=== PATIENT | female | born 1950 | race Caucasian/White ===

== ENCOUNTER 2018-01-30 00:50 | Outpatient (CLI) | payer OTHER, SELFPAY ==
--- NOTE | 2018-01-30 14:33 | DI.CTLCSR_ITS ---
SYMPTOMS/DIAGNOSIS: COPD, J44.9, FORMER SMOKER, Z87.891 CT SCAN OF THE CHEST: CT scan of the chest was performed according to the low dose cancer screening protocol. Comparison is 02/11/17. The thoracic aorta is of normal caliber. The heart size is within normal limits. No pericardial effusion is seen. Coronary artery calcifications are present. No mediastinal or hilar adenopathy is present. No pleural effusion or pneumothorax is identified. Central lobular and paraseptal emphysematous changes are present in the lungs. There are again seen multiple calcified pulmonary nodules. The largest is seen in the left lower lobe. No noncalcified pulmonary nodules are seen. No infiltrates are present. The tracheobronchial tree is unremarkable. There is diffuse decreased attenuation in the liver consistent with fatty infiltration. There has been no change in size of the 2.8 cm right adrenal nodule. There are degenerative changes seen in the spine. IMPRESSION: 1. No noncalcified pulmonary nodules. 2. Stable right adrenal nodule. Lung-RAD Category: Lung RADS Category 1- Negative.
== END 2018-01-30 01:10 ==
PROVIDERS: PCP Family Medicine; Visit Provider Internal Medicine
DX: J44.9 Chronic obstructive pulmonary disease, unspecified (principal); Z12.2 Encounter for screening for malignant neoplasm of respiratory organs; E27.8 Other specified disorders of adrenal gland; Z87.891 Personal history of nicotine dependence
CPT/HCPCS: G0297

== ENCOUNTER 2018-10-15 11:21 | Outpatient (REF) | payer SELFPAY ==
[2018-10-15 21:55] LABS: ALT 75 U/L (12-78); AST 77 U/L (15-37); Albumin 3.9 g/dL (3.4-5.0); Alkaline Phosphatase 81 U/L (46-116); Anion Gap 13.2 mmol/L (3-11); BUN 8 mg/dL (7-18); Bilirubin, Total 0.4 mg/dL (0.2-1.0); CO2 22.8 mmol/L (21.0-32.0); CREATININE 0.58 mg/dL (0.55-1.02); Calcium 9.5 mg/dL (8.5-10.1); Chloride 104 mmol/L (98-107); Glucose 119 mg/dL (70-100); Potassium 4.3 mmol/L (3.5-5.1); Sodium 140 mmol/L (136-145); Total Protein 7.3 g/dL (6.4-8.2)
== END 2018-10-15 11:41 ==
LOC: NCHCN 11:21
PROVIDERS: PCP Family Medicine; Visit Provider Family Medicine
DX: E11.9 Type 2 diabetes mellitus without complications (principal); E78.5 Hyperlipidemia, unspecified; I10 Essential (primary) hypertension
CPT/HCPCS: 80053

== ENCOUNTER 2019-12-31 14:19 | Outpatient (REF) | payer OTHER, SELFPAY ==
[2019-12-31 19:19] LABS: ALT 38 U/L (14-59); AST 35 U/L (15-37); Albumin 4.2 g/dL (3.4-5.0); Alkaline Phosphatase 76 U/L (46-116); Anion Gap 13.7 mmol/L (3-11); BUN 12 mg/dL (7-18); Bilirubin, Total 0.4 mg/dL (0.2-1.0); CO2 23.3 mmol/L (21.0-32.0); CREATININE 0.73 mg/dL (0.55-1.02); Calcium 9.8 mg/dL (8.5-10.1); Calculated LDL 69 mg/dL (<100); Chloride 103 mmol/L (98-107); Cholesterol 148 mg/dL (<200); Glucose 107 mg/dL (74-106); HDL Cholesterol 64 mg/dL (40-60); Potassium 4.4 mmol/L (3.5-5.1); Sodium 140 mmol/L (136-145); Total Protein 7.5 g/dL (6.4-8.2); Triglyceride 76 mg/dL (<150)
[2019-12-31 19:23] LABS: Hemoglobin A1C 7.1 % (<5.7)
== END 2019-12-31 14:39 ==
LOC: NCHCN 14:19
PROVIDERS: PCP Family Medicine; Visit Provider Family Medicine
DX: E11.9 Type 2 diabetes mellitus without complications (principal); I10 Essential (primary) hypertension; R78.5 Finding of other psychotropic drug in blood; K76.0 Fatty (change of) liver, not elsewhere classified
CPT/HCPCS: 80053; 80061; 83036

== ENCOUNTER 2020-09-06 01:05 | Outpatient (CLI) | payer OTHER, SELFPAY ==
--- NOTE | 2020-09-06 08:39 | DI.CTLCSR_ITS ---
Exam(s) CT CHEST LUNG CANCER SCREEN EXAM: CT CHEST LUNG CANCER SCREEN CLINICAL HISTORY: SCREENING FOR LUNG CA, FORMER SMOKER, Z87.891. TECHNIQUE: Imaging Protocol: Low Dose Technique CONTRAST MATERIAL: None COMPARISON: CT CT CHEST LUNG CANCER SCREEN from 01/30/2018 FINDINGS: CHEST: LUNGS: Multiple tiny calcified granulomas are again noted. A larger calcified granuloma in the left lower lobe is also again noted and unchanged.. There are no new ominous nodules in either lung field and no pleural effusions. Hyperinflation and COPD changes-emphysematous changes are again noted. N o new findings in the trachea and mainstem bronchi. No pleural effusions. MEDIASTINUM: There is no obvious hilar nor mediastinal adenopathy. CARDIAC: Heart size is normal. There is no pericardial effusion.Caliber of the thoracic aorta is wit hin normal limits. OTHER: The lowermost images of this low-dose chest study reveal multiple areas of hypodensity in the liver which were not previously evident and therefore suspicious for metastatic disease. Is difficul t to assess on this low-dose noninfused study. The largest of these is in the right hepatic lobe and measures approximately 2 x 1.9 cm. Previously described nodule in the right adrenal gland is unchan ged. Opposite-left adrenal gland remains unremarkable. OSSEOUS: No significant osseous lesions.. IMPRESSION: 1. Stable benign-appearing pulmonary findings. No new obvious intrathoracic adenopathy and no pleura l effusions. 2. Of concern is the appearance of multiple hypodensities now evident in the liver. Although these m ay imply the presence of metastatic disease, I note that the liver is less steatotic than on the prev ious study and there is a possibly that these may represent areas of persistent fatty parenchymal jayla nge. Nevertheless, this is not possible to assess accurately on this type of low-dose noninfused [place] study. Therefore further imaging with contrast infused CT scan of the abdomen-pelvis is recommend ed. 3. Lung RADS Cat 1S - Negative: No nodules and definitely benign nodules Needs workup of new significant liver findings as described above. Lung-RADS 1.0 CATEGORIES: Category 0 - Prior chest CT exam(s) being located for comparison. Category 1 - Annual screening in 12 months. No nodules or definitely benign nodules. Category 2 - Annual screening in 12 months. Benign appearance. Nodules with low likelihood of becomin g active cancer. Category 3 - 6-month follow-up. Probably benign. Short-term follow-up suggested. Nodules with low lik elihood of becoming active cancer. Category 4A - 3-month follow-up and CT/PET if >8 mm in size. Suspicious finding. Findings which requi re additional testing. Category 4B - Findings which require additional testing and tissue sampling. Modifier S- Potentially clinically significant findings (non lung cancer) RADIATION DOSE DELIVERED: 77.17mGy.cm Total DLP 1.84mGy CTDIvol DATA REPOSITORY: All CT scans at this facility are submitted to the National Radiology Data Registry (NRDR) Dose Index Registry (DIR) with the [employer] (ACR). RADIATION OPTIMIZATION: All CT scans at this facility use at least one of these dose optimization te chniques: automated exposure control; mA and/or kV adjustment per patient size (includes targeted exa ms where dose is matched to clinical indication); or iterative reconstruction.
== END 2020-09-06 01:25 ==
PROVIDERS: PCP Family Medicine; Visit Provider Family Medicine
DX: Z12.2 Encounter for screening for malignant neoplasm of respiratory organs (principal); K76.0 Fatty (change of) liver, not elsewhere classified; Z87.891 Personal history of nicotine dependence
CPT/HCPCS: 71271

== ENCOUNTER → 2020-09-15 04:23 | Outpatient (CLI) | payer OTHER, SELFPAY ==
--- NOTE | 2020-09-15 08:30 | DI.CT_ITS ---
Exam(s) CT ABDOMEN PELVIS W EXAM: CT ABDOMEN PELVIS W CLINICAL HISTORY: F/U ABNL CT OF CHEST,EVALUATE LIVER FINDINGS,R91.8. TECHNIQUE: Imaging Protocol: Axial computed tomography images with coronal and sagittal reformatted images were created and reviewed CONTRAST MATERIAL: Intravenous: Omnipaque 350 Contrast volume:100 Oral: yes / COMPARISON: CT CHEST WITHOUT CONTRAST from 12/05/2014 CT CHEST WITHOUT CONTRAST from 12/05/2014 MR MRI - LUMBAR SPINE WO CONTRAST from 12/19/2015 MR MRI - LUMBAR SPINE WO CONTRAST from 12/19/2015 CT CHEST - LUNG CANCER SCREENING from 02/11/2017 CT CHEST - LUNG CANCER SCREENING from 02/11/[address] CHEST LUNG CANCER SCREEN from 01/30/[address] CHEST LUNG CANCER SCREEN from 01/30/[address] CHEST LUNG CANCER SCREEN from 09/06/[address] CHEST LUNG CANCER SCREEN from 09/06/2020 FINDINGS: ABDOMEN: Lung Bases: Emphysematous changes. Small hiatal hernia. Liver: Normal density. Multiple circumscribed lesions are noted in the liver. There is no evidence of contrast enhancement. The findings are consistent with multiple cysts. Although they were not vi sible on prior exams, the overall liver attenuation was extremely low, close to water density, second krishna to fatty infiltration which would make it difficult to detect an underlying lesion. Gallbladder and biliary tract: No radiodense calculus or dilation. Pancreas: Normal density, no abnormal calcifications or inflammatory process. Spleen: Normal. Kidneys: Normal size, contour and axis. No radiodense stones or obstructive uropathy. No masses seen. Adrenal glands: No masses seen. Abdominal Aorta: Abdominal portion non-dilated. Atherosclerotic changes greatest of the inferior abd ominal aorta and iliac arteries. Soft tissues: Small fatty containing umbilical hernia. PELVIS: Bladder: Symmetric distention, no gross wall thickening. Cystocele. Bowel: No obstruction or bowel wall thickening. Moderate to increased quantity of stool. Peritoneal cavity: No ascites, collection or mesenteric inflammatory response. Bones: Degenerative disc changes and facet degenerative changes in the lower lumbar spine. Reproductive organs: Within normal limits. Lymph nodes: Unremarkable. Impression: Liver lesions are consistent with simple cysts. Underlying hepatic steatosis. Atherosclerotic orellana es of the aorta and iliac arteries. RADIATION DOSE DELIVERED: 1,730.22mGy.cm Total DLP DATA REPOSITORY: All CT scans at this facility are submitted to the National Radiology Data Registry (NRDR) Dose Index Registry (DIR) with the [employer] (ACR). RADIATION OPTIMIZATION: All CT scans at this facility use at least one of these dose optimization te chniques: automated exposure control; mA and/or kV adjustment per patient size (includes targeted exa ms where dose is matched to clinical indication); or iterative reconstruction.
[2020-09-15 09:32] LABS: Hemoglobin A1C 7.2 % (<5.7)
[2020-09-15 09:35] LABS: ALT 39 U/L (14-59); AST 30 U/L (15-37); Albumin 3.7 g/dL (3.4-5.0); Alkaline Phosphatase 65 U/L (46-116); Anion Gap 8.6 mmol/L (3-11); BUN 14 mg/dL (7-18); Bilirubin, Total 0.3 mg/dL (0.2-1.0); C-Reactive Protein 0.22 mg/dL (0.0-0.3); CO2 27.4 mmol/L (21.0-32.0); CREATININE 0.8 mg/dL (0.55-1.02); Calcium 9.2 mg/dL (8.5-10.1); Chloride 104 mmol/L (98-107); Glucose 120 mg/dL (74-106); Potassium 4.1 mmol/L (3.5-5.1); Sodium 140 mmol/L (136-145); Total Protein 7.6 g/dL (6.4-8.2)
[2020-09-15 09:39] LABS: ESR 32 mm/hr (0-30)
[2020-09-15] MEDS: Omnipaque 350 MG/ML 100 ML BTL IJ (10:04)
[2020-09-15] MEDS: Normal Saline - Diluent 50 ML VIAL IV (10:07)
[2020-09-15] MEDS: Breeza Beverage 473 ML BTL PO (10:12)
== END ==
PROVIDERS: PCP Family Medicine; Visit Provider Family Medicine
DX: K76.9 Liver disease, unspecified (principal); I70.0 Atherosclerosis of aorta; I70.8 Atherosclerosis of other arteries; R91.8 Other nonspecific abnormal finding of lung field
CPT/HCPCS: 36415; 80053; 85652; 74177; 83036; 86140; J3490

== ENCOUNTER 2021-01-02 14:44 | Outpatient (REF) | payer OTHER, SELFPAY ==
[2021-01-03 13:58] LABS: COVID-19 RT-PCR UVMMC Result Negative (Negative)
== END 2021-01-02 14:45 | disposition home or self-care (01) ==
LOC: NCHCN 14:44
PROVIDERS: PCP Family Medicine; Visit Provider Family Medicine
DX: R30.0 Dysuria (principal); Z20.822 Contact with and (suspected) exposure to COVID-19; R19.7 Diarrhea, unspecified
CPT/HCPCS: 87077; U0003; U0005; 87086; 87186

== ENCOUNTER 2021-08-22 16:35 | Outpatient (REF) | payer MEDICARE, SELFPAY ==
[2021-08-22 15:31] LABS: HCT 36.8 % (36.0-46.0); HGB 11.1 g/dL (11.2-15.7); MCH 26.4 pg (27.0-33.0); MCHC 30.2 % (32.0-36.0); MCV 88 fL (80-95); MPV 9.7 fL (8.0-11.0); Platelet Count 341 10^3/uL (130-400); RDW 15.2 % (11.7-14.6); RDW-SD 48.3 fL; WBC 7.13 10^3/uL (4.4-10.8)
[2021-08-22 16:17] LABS: Ferritin 15 ng/mL (8-252)
== END 2021-08-22 16:36 | disposition home or self-care (01) ==
LOC: NCHCN 16:35
PROVIDERS: PCP Family Medicine; Visit Provider Family Medicine
DX: D64.9 Anemia, unspecified (principal)
CPT/HCPCS: 85027; 82728

== ENCOUNTER 2021-10-01 09:16 | Emergency (ER) | payer MEDICARE, SELFPAY ==
[2021-10-01 09:20] VITALS: BP 172/69; PULSE 80; RESP 18; TEMP 36.6; O2SAT 96
--- NOTE | 2021-10-01 09:35 | ED.GENADUL_ITS ---
Discharge Plan Disposition Patient Disposition: HOME Condition: Stable Discharge Details Clinical Impression: Eye disorder Primary Care Provider: Britney Boes V ED Provider: Robyn England Home Meds and New Rx's Prescriptions: Continued Stiolto Respimat 2.5-2.5 mcg/actuation mist 2 puff inhalation DAILY valacyclovir 500 mg tablet See Rx Instructions PO DIRECTED Rx Instructions: PO as directed; Dulera 100-5 mcg/actuation HFA aerosol inhaler 2 puff inhalation BID Qty: 1 5RF losartan 50 MG tablet 1 tab PO HS celecoxib [Celebrex] 200 MG capsule 1 tab PO HS aspirin [Aspir-81] 81 MG tablet,delayed release (DR/EC) 1 tab PO HS simvastatin 40 MG tablet 1 tab PO HS omeprazole 20 MG capsule,delayed release(DR/EC) 1 tab PO BID albuterol sulfate 8.5 GM HFA aerosol inhaler 2 puff Inhalation .BID PRN cholecalciferol (vitamin D3) [Vitamin D3] 2,000 UNIT capsule 1 tab PO DAILY No Action ipratropium-albuterol 0.5 mg-3 mg(2.5 mg base)/3 mL Solution For Nebulization 3 ml INHALATION Q6H metformin 850 mg tablet 850 mg PO BID ferrous sulfate, dried 144 mg (45 mg iron) Tablet Extended Release 144 mg PO DAILY Discharge Instructions Additional Instructions: Please use the erythromycin ointment 3-4 times a day in your eyelid. Please do not try to forcibly pull your eyelids apart. You may also try to drop Refresh Tears into the inside corner of your eye several times per day. Please follow- up at your appointment with [facility] on 10/03/2021 as previously scheduled. Please return immediately to the emergency department if you develop any new or worsening symptoms, if your condition does not improve as expected, or if you become otherwise concerned. Referrals: Britney Bose MD [Primary Care Provider] - Discharge Data Discharge Date/Time-TO BE ENTERED AT DEPARTURE: 10/01/21 13:16 Medical Decision Making Amairani Escobedo is a 70-year-old woman with a history of COPD, zst-[id number] diabetes, hypertension, hyperlipidemia presenting to the emergency department eyelid glued shut. Patient reports that this morning at approximately 7 AM she was reaching for her refresh tears eyedrops, and grabbed her nail glue bottle instead. Patient reports that she dropped this nail glue into her left eye. She states that she realized her mistake immediately, but the glue had spread quickly and had glued her left eyelids together. Patient reports that she has some mild pain in the medial aspect of her left thigh when she tries to roll her eyes, otherwise has no eye pain, no other pain. Patient denies any other symptoms, states that she was previously well and in her usual state of health. Patient states that she googled superglue in the eye, and then put unsalted butter over her eyelid. She has also been holding a warm wet washcloth over the eyelid. No other interventions taken prior to arrival. Patient has brought nail glue bottle with her, ingredient reads cyanoacrylate. On exam patient is very well and nontoxic-appearing. The left eyelids are glued together, there is no erythema or edema of the orbit. Tearing from the left eye present. Concern for cyanoacrylate to be eye and to the eyelids. Exam/history at this time is not consistent with other eye injury, infection. Plan for erythromycin 3 times daily-4 times daily, outpatient follow-up with [facility] (patient has previously scheduled appointment with them for 10/03). I did discuss patient with Dr. Salomon at [facility], who agrees with erythromycin to the lids, can also use refresh tears at medial corner of eyelid, will see in follow- up, no further acute recommendations. I did discuss with patient that she should not attempt to forcibly open the eye and should let glue dissolve over time. I had a discussion with Patient regarding return to emergency department precautions, home care, and importance of outpatient follow-up. Pt verbalizes understanding of the plan and is amenable. Patient discharged to home with clear plan for outpatient follow-up. All questions were answered. Disposition decision was made weighing the risks and benefits of hospitalization versus outpatient treatment, the risk for further decompensation, and the patient's wishes. Medical Records Medical records reviewed: Yes I reviewed the patient's medical records. HPI General Mode of arrival: ambulatory . Date/Time Provider Initiated Documentation: 10/01/21 09:35 . Limitations to Documentation: no limitations . Information obtained by: patient, RN notes reviewed and old records reviewed . HPI Narrative: Amairani Escobedo is a 70-year-old woman with a history of COPD, avs-excydix-dzeelppfw diabetes, hypertension, hyperlipidemia presenting to the emergency department with left eyelids glued shut. Patient reports that this morning at approximately 7 AM she was reaching for her refresh tears eyedrops, and grabbed her nail glue bottle instead. Patient reports that she dropped this nail glue into her left eye. She states that she realized her mistake immediately, but the glue had spread quickly and had glued her left eyelids together. Patient reports that she has some mild pain in the medial aspect of her left eye when she tries to roll her eyes, otherwise has no eye pain, no other pain. Patient denies any other symptoms, states that she was previously well and in her usual state of health. Patient states that she googled superglue in the eye, and then put unsalted butter over her eyelid. She has also been holding a warm wet washcloth over the eyelid. No other interventions taken prior to arrival. Patient arrives with nail glue bottle, ingredient reads cyanoacrylate. Related Data Home Medications Medication Instructions Recorded Confirmed albuterol sulfate 90 mcg/actuation 2 puff inhalation .BID PRN 07/28/14 04/25/21 aerosol inhaler aspirin 81 mg tablet,delayed 1 tab PO HS 07/28/14 10/01/21 release (Aspir-) celecoxib 200 mg capsule (Celebrex) 1 tab PO HS 07/28/14 10/01/21 cholecalciferol (vitamin D3) 50 1 tab PO DAILY 07/28/14 10/01/21 mcg (2,000 unit) capsule (Vitamin D3) losartan 50 mg tablet 1 tab PO HS 07/28/14 10/01/21 omeprazole 20 mg capsule,delayed 1 tab PO BID 07/28/14 10/01/21 release simvastatin 40 mg tablet 1 tab PO HS 07/28/14 10/01/21 valacyclovir 500 mg tablet See Rx Instructions PO DIRECTED 10/19/20 04/25/21 mometasone-formoterol HFA 100 2 puff inhalation BID #1 inh 11/29/20 04/25/21 mcg-5 mcg/actuation aerosol inhaler (Dulera) tiotropium 2.5 mcg-olodaterol 2.5 2 puff inhalation DAILY 04/25/21 10/01/21 mcg/actuation mist for inhalation (Stiolto Respimat) ferrous sulfate, dried 144 mg (45 144 mg PO DAILY 10/01/21 10/01/21 mg iron) tablet,extended release ipratropium 0.5 mg-albuterol 3 mg 3 ml inhalation Q6H 10/01/21 10/01/21 (2.5 mg base)/3 mL nebulization soln metformin 850 mg tablet 850 mg PO BID 10/01/21 10/01/21 Previous Rx's Medication Instructions Recorded mometasone-formoterol HFA 100 2 puff inhalation BID #1 inh 11/29/20 mcg-5 mcg/actuation aerosol inhaler (Dulera) Allergies Allergy/AdvReac Type Severity Reaction Status Date / Time acetaminophen [From Vicodin] Allergy Verified 10/01/21 09:23 gabapentin Allergy Verified 10/01/21 09:23 hydrocodone [From Vicodin] Allergy Verified 10/01/21 09:23 naproxen [From Aleve] Allergy Verified 10/01/21 09:23 prednisone Allergy Verified 10/01/21 09:23 tramadol [From Ultram] Allergy Verified 10/01/21 09:23 adhesive AdvReac Intermediate Skin Rash Unverified 10/01/21 09:23 ibuprofen AdvReac Itching Unverified 10/01/21 09:23 General Stated Complaint: EyeProblem SAIRA: 3 Review of Systems Narrative: Constitutional: denies fevers Eyes: Reports eyelids stuck shut, eye pain as per HPI, no eye pain or visual complaints prior to incident ENT: denies ear pain, dental pain, sore throat Cardiovascular: denies chest pain Respiratory: denies SOB, cough GI: denies abdominal pain, vomiting, diarrhea : denies flank pain MSK: denies back pain, neck pain, arthralgias, myalgias Skin: denies rash Neuro: denies headaches PFSH All Active Problems Eye disorder (Acute) Personal history of nicotine dependence (Acute) COPD (chronic obstructive pulmonary disease) (Chronic) Nocturia (Acute) Disturbance of consciousness (Acute) Obstructive sleep apnea syndrome in adult (Acute) Hypersomnia (Acute) Primary insomnia (Acute) Obesity (Chronic) Family History Father Cancer lung cancer. Sister Cancer lung cancer history. Brother Cancer history of prostate cancer. Emphysema, unspecified Mother Cancer uterine cancer. Social History Smoking/Tobacco Use Status: Former Tobacco Use Quit Date: 03/24/09 Smoking risk assessment performed?: Yes Alcohol Intake: current Alcohol Intake frequency: holidays/special occasions only Drug use: Never Substance use type: does not use Do you feel safe at home: Yes Do you feel safe in your relationship?: Yes Exam Narrative Exam Narrative: Constitutional: well and srf-nkdew-hnshecfoe, pleasant, conversing normally HENT: head atraumatic/normocephalic/normal inspection, mucous membranes moist Eyes: conjunctiva normal, sclera normal, pupils 3mm right eye, last eyelid glued shut, no edema or erythema of the orbit, small amount of tearing from the eye (clear colorless discharge) Neck: no stridor, normal ROM, trachea midline Resp: normal work of breathing, speaking in full sentences Cardio: normal rate, normal rhythm Skin: warm, dry, normal color, no rash Neuro: alert, not altered, grossly non-focal, normal tone Ext: Moving all extremities equally Psych: normal mood, normal affect, normal behavior Course Vital Signs Vital signs: Vital Signs Temperature 36.6 C 10/01/21 09:20 Pulse 80 10/01/21 09:20 Respiratory Rate 18 10/01/21 09:20 Blood Pressure 172/69 H 10/01/21 09:20 Pulse Oximetry 96 10/01/21 09:20 Temperature 36.6 C 10/01/21 09:20 Temperature Source Temporal Artery Scan 10/01/21 09:20 Pulse 80 10/01/21 09:20 Respiratory Rate 18 10/01/21 09:20 Respiratory Effort Non-Labored 10/01/21 09:25 Blood Pressure 172/69 H 10/01/21 09:20 Blood Pressure Position Sitting 10/01/21 09:20 Pulse Oximetry 96 10/01/21 09:20 Oxygen Delivery Method Room Air 10/01/21 09:20 Oxygen Flow Rate 0 10/01/21 09:20
[2021-10-01] MEDS: Erythromycin Ophth Oint 3.5 GM TUBE OS (09:54)
== END 2021-10-01 13:16 | disposition home or self-care (01) ==
LOC: ER 09:48
PROVIDERS: Emergency Provider Student in an Organized Health Care Education/Training Program; PCP Family Medicine
DX: H57.12 Ocular pain, left eye (principal); I10 Essential (primary) hypertension; E11.9 Type 2 diabetes mellitus without complications; J44.9 Chronic obstructive pulmonary disease, unspecified; Z87.891 Personal history of nicotine dependence; Z79.84 Long term (current) use of oral hypoglycemic drugs
CPT/HCPCS: 99283; 99284

== ENCOUNTER → 2021-12-06 02:19 | Outpatient (CLI) | payer MEDICARE, SELFPAY ==
--- NOTE | 2021-12-06 07:00 | DI.CTLCSR_ITS ---
Exam(s) CT CHEST LUNG CANCER SCREEN EXAM: CT CHEST LUNG CANCER SCREEN CLINICAL HISTORY: Screening for lung cancer,former smoker, z87.891 TECHNIQUE: Imaging Protocol: Axial computed tomography images with coronal and sagittal reformatted images were created and reviewed COMPARISON: CT CT CHEST LUNG CANCER SCREEN from 09/06/[address] ABDOMEN PELVIS W from 09/15/2020 FINDINGS: Tracheobronchial tree: Patent where visualized. Pulmonary parenchyma: No consolidation or dominant measurable mass. Moderate centrilobular and parase ptal emphysematous changes are present. There again seen multiple calcified granuloma. Lung Nodules: No noncalcified pulmonary nodules are present. Mediastinum and Julianne: No dominant adenopathy or fluid collection. The esophagus is unremarkable. Thyroid gland: Unremarkable. Lymph nodes: Unremarkable. Pleura: No effusion or pneumothorax. Heart: The heart is not dilated. Mild coronary artery calcification. No pericardial effusion. Aorta: Thoracic aorta non-dilated.There is atherosclerosis present. Upper abdomen: There is diffuse decreased attenuation of the liver. There again seen multiple hypod ense lesions in the liver consistent with cysts. These are unchanged. Soft Tissues: Unremarkable. Bones: Within normal limits. IMPRESSION: No noncalcified pulmonary nodules. Lung RADS Cat 1 - Negative: No nodules and definitely benign nodules Lung-RADS 1.0 CATEGORIES: Category 0 - Prior chest CT exam(s) being located for comparison. Category 1 - Annual screening in 12 months. No nodules or definitely benign nodules. Category 2 - Annual screening in 12 months. Benign appearance. Nodules with low likelihood of becomin g active cancer. Category 3 - 6-month follow-up. Probably benign. Short-term follow-up suggested. Nodules with low lik elihood of becoming active cancer. Category 4A - 3-month follow-up and CT/PET if >8 mm in size. Suspicious finding. Findings which requi re additional testing. Category 4B - Findings which require additional testing and tissue sampling. Suspicious finding. Category 4X - Category 3 or 4 nodules with additional features or imaging findings that increases the suspicion of malignancy. Modifier S- Potentially clinically significant finding. (Non lung cancer) RADIATION DOSE DELIVERED: 73.2mGy.cm Total DLP 1.84mGy CTDIvol 73.2mGy.cm Total DLP 1.84mGy CTDIvol DATA REPOSITORY: All CT scans at this facility are submitted to the National Radiology Data Registry (NRDR) Dose Index Registry (DIR) with the [employer] (ACR). RADIATION OPTIMIZATION: All CT scans at this facility use at least one of these dose optimization te chniques: automated exposure control; mA and/or kV adjustment per patient size (includes targeted exa ms where dose is matched to clinical indication); or iterative reconstruction.
== END ==
PROVIDERS: PCP Family Medicine; Visit Provider Student in an Organized Health Care Education/Training Program
DX: Z12.2 Encounter for screening for malignant neoplasm of respiratory organs (principal); Z87.891 Personal history of nicotine dependence
CPT/HCPCS: 71271

== ENCOUNTER 2022-01-01 08:52 | Outpatient (REF) | payer MEDICARE, SELFPAY ==
[2022-01-01 16:03] LABS: HCT 35.2 % (36.0-46.0); HGB 11.2 g/dL (11.2-15.7)
[2022-01-01 16:07] LABS: ALT 36 U/L (14-59); AST 41 U/L (15-37); Albumin 3.7 g/dL (3.4-5.0); Alkaline Phosphatase 66 U/L (46-116); Anion Gap 12.6 mmol/L (3-11); BUN 9 mg/dL (7-18); Bilirubin, Total 0.5 mg/dL (0.2-1.0); CO2 22.4 mmol/L (21.0-32.0); CREATININE 0.7 mg/dL (0.55-1.02); Calcium 9.4 mg/dL (8.5-10.1); Chloride 104 mmol/L (98-107); Estimated GFR 93.56 (mL/min/1.73m2); Glucose 145 mg/dL (74-106); Potassium 3.9 mmol/L (3.5-5.1); Sodium 139 mmol/L (136-145); Total Protein 7.6 g/dL (6.4-8.2)
[2022-01-01 17:43] LABS: Hemoglobin A1C 7.7 % (<5.7)
[2022-01-03 11:07] LABS: COVID-19 RT-PCR UVMMC Result Positive (Negative)
== END 2022-01-01 08:53 | disposition home or self-care (01) ==
LOC: NCHCN 08:52
PROVIDERS: PCP Family Medicine; Visit Provider Family Medicine
DX: I10 Essential (primary) hypertension (principal); D64.9 Anemia, unspecified; E11.9 Type 2 diabetes mellitus without complications; R79.89 Other specified abnormal findings of blood chemistry; R05.8 Other specified cough; J44.9 Chronic obstructive pulmonary disease, unspecified; Z20.822 Contact with and (suspected) exposure to COVID-19; R30.0 Dysuria; J06.9 Acute upper respiratory infection, unspecified
CPT/HCPCS: 80053; U0003; 83036; 85014; 85018; 87086

== ENCOUNTER 2022-09-10 13:27 | Outpatient (REF) | payer MEDICARE, SELFPAY ==
[2022-09-10 15:10] LABS: HCT 38.8 % (36.0-46.0); HGB 12.6 g/dL (11.2-15.7); MCH 28.8 pg (27.0-33.0); MCHC 32.5 % (32.0-36.0); MCV 89 fL (80-95); MPV 10.1 fL (8.0-11.0); Platelet Count 270 10^3/uL (130-400); RBC 4.38 10^6/uL (3.93-5.22); RDW 14.2 % (11.7-14.6); RDW-SD 45.7 fL; WBC 6.69 10^3/uL (4.4-10.8)
[2022-09-10 15:24] LABS: Iron 150 ug/dL (50-170)
[2022-09-10 15:30] LABS: AST 35 U/L (15-37); Calculated LDL 64 mg/dL (<100); Cholesterol 146 mg/dL (<200); HDL Cholesterol 63 mg/dL (40-60); Triglyceride 99 mg/dL (<150)
[2022-09-10 15:48] LABS: Creatine Kinase 190 U/L (26-192)
== END 2022-09-10 13:28 | disposition home or self-care (01) ==
LOC: NCHCN 13:27
PROVIDERS: PCP Family Medicine; Visit Provider Family Medicine
DX: Z00.00 Encounter for general adult medical examination without abnormal findings (principal); D64.9 Anemia, unspecified; R79.89 Other specified abnormal findings of blood chemistry; K76.0 Fatty (change of) liver, not elsewhere classified; E78.5 Hyperlipidemia, unspecified
CPT/HCPCS: 80061; 82550; 85027; 83540; 84450

== ENCOUNTER → 2022-12-26 03:08 | Outpatient (CLI) | payer MEDICARE, SELFPAY ==
--- NOTE | 2022-12-26 | DI.CTLCSR_ITS ---
Exam(s) CT CHEST LUNG CANCER SCREEN EXAM: CT CHEST LUNG CANCER SCREEN CLINICAL HISTORY: HX SMOKER Z87.891 HX TOBACCO USE SCREENING LUNG CANCER. TECHNIQUE: Imaging Protocol: Low Dose Technique CONTRAST MATERIAL: None COMPARISON: CT CHEST WITHOUT CONTRAST from 12/05/[address] CHEST LUNG CANCER SCREEN from 01/30/[address] ABDOMEN PELVIS W from 09/15/[address] CHEST LUNG CANCER SCREEN from 12/06/2021 FINDINGS: CHEST: LUNGS: Multiple tiny calcified granulomas are again noted in the lung gibbons. There is also slightly larger benign calcified granuloma in the superior segment of the left lower lobe again noted, unchan ged.. COPD changes again noted. Largest bulla is again noted to be in the subcarinal medial basal segment of the right lower lobe. There is a small area of infiltrate in the right upper lobe which is associated with a spiculated nod ular density measuring 7 by 6 mm, more evident than on prior study of 12/06/2021. Suspicious. There are no other suspicious focal lung findings and there are no pleural effusions. MEDIASTINUM: There is no obvious hilar nor mediastinal adenopathy. CARDIAC: Heart size is normal. There is no pericardial effusion.Caliber of the thoracic aorta is wit hin normal limits. OTHER: Right adrenal gland mass again noted and appears unchanged from 2018. Left adrenal gland emiliano ins unremarkable. There also hypodense lesions in the right hepatic lobe again noted which are uncha nged from 12/06/2021. These were shown to be benign cysts on contrast infused abdominal CT scan of 0 09/15/2020. OSSEOUS: No significant osseous lesions.. IMPRESSION: 1. There is a concerning nodular infiltrate in the right upper lobe evident. This requires appropria te follow-up to rule out malignancy. 2. Mass again noted in the right adrenal gland measuring 2.7 x 2.8 cm but unchanged from prior CT negro dies. Left adrenal gland unremarkable. 3. Lung RADS Cat 4A - Suspicious: Findings for which additional diagnostic testing and/or tissue samp ling recommended Lung-RADS 1.0 CATEGORIES: Category 0 - Prior chest CT exam(s) being located for comparison. Category 1 - Annual screening in 12 months. No nodules or definitely benign nodules. Category 2 - Annual screening in 12 months. Benign appearance. Nodules with low likelihood of becomin g active cancer. Category 3 - 6-month follow-up. Probably benign. Short-term follow-up suggested. Nodules with low lik elihood of becoming active cancer. Category 4A - 3-month follow-up and CT/PET if >8 mm in size. Suspicious finding. Findings which requi re additional testing. Category 4B - Findings which require additional testing and tissue sampling. Category 4X - Category 3 or 4 nodules with additional features or imaging findings that increases the suspicion of malignancy. Modifier S- Potentially clinically significant findings (non lung cancer) RADIATION DOSE DELIVERED: 73.3mGy.cm Total DLP DATA REPOSITORY: All CT scans at this facility are submitted to the National Radiology Data Registry (NRDR) Dose Index Registry (DIR) with the [employer] (ACR). RADIATION OPTIMIZATION: All CT scans at this facility use at least one of these dose optimization te chniques: automated exposure control; mA and/or kV adjustment per patient size (includes targeted exa ms where dose is matched to clinical indication); or iterative reconstruction.
== END ==
PROVIDERS: PCP Family Medicine; Visit Provider Family Medicine
DX: Z87.891 Personal history of nicotine dependence (principal); Z12.2 Encounter for screening for malignant neoplasm of respiratory organs; R91.8 Other nonspecific abnormal finding of lung field
CPT/HCPCS: 71271

== ENCOUNTER 2023-01-22 09:36 | Outpatient (REF) | payer MEDICARE, SELFPAY ==
[2023-01-22 16:07] LABS: Anion Gap 11.1 mmol/L (3-11); BUN 9 mg/dL (7-18); CO2 23.9 mmol/L (21.0-32.0); CREATININE 0.8 mg/dL (0.55-1.02); Calcium 9.7 mg/dL (8.5-10.1); Chloride 102 mmol/L (98-107); Estimated GFR 79.22 (mL/min/1.73m2); Glucose 165 mg/dL (74-106); Sodium 137 mmol/L (136-145)
== END 2023-01-22 09:37 | disposition home or self-care (01) ==
LOC: NCHCN 09:36
PROVIDERS: PCP Family Medicine; Visit Provider Family Medicine
DX: Z00.00 Encounter for general adult medical examination without abnormal findings (principal)
CPT/HCPCS: 80048

== ENCOUNTER 2024-01-15 11:54 | Outpatient (REF) | payer MEDICARE, SELFPAY ==
[2024-01-15 16:53] LABS: Abs Immature Grans 0.04 10^3/uL (0.0-0.06); Absolute Basophil Count 0.06 10^3/uL (0.0-0.2); Absolute Eosinophil Count 0.53 10^3/uL (0.0-0.7); Absolute Lymphocyte Count 1.93 10^3/uL (1.2-3.4); Absolute Monocyte Count 0.47 10^3/uL (0.1-0.8); Basophils % 0.7 %; Eosinophils % 6.5 %; HCT 38.2 % (36.0-46.0); Immature Grans % 0.5 %; Lymphocytes % 23.7 %; MCH 28.4 pg (27.0-33.0); MCHC 31.4 % (32.0-36.0); MCV 90 fL (80-95); MPV 9.8 fL (8.0-11.0); Monocytes % 5.8 %; Neutrophils % 62.8 %; Platelet Count 410 10^3/uL (130-400); RBC 4.23 10^6/uL (3.93-5.22); RDW 12.9 % (11.7-14.6); RDW-SD 42.4 fL; WBC 8.13 10^3/uL (4.4-10.8)
[2024-01-15 17:31] LABS: ALT 11 U/L (14-59); AST 22 U/L (15-37); Alkaline Phosphatase 60 U/L (46-116); Anion Gap 12.6 mmol/L (3-11); BUN 6 mg/dL (7-18); Bilirubin, Total 0.34 mg/dL (0.2-1.0); CO2 25.4 mmol/L (21.0-32.0); CREATININE 0.6 mg/dL (0.55-1.02); Calcium 9.5 mg/dL (8.5-10.1); Chloride 105 mmol/L (98-107); Glucose 79 mg/dL (74-106); Potassium 3.9 mmol/L (3.5-5.1); Sodium 143 mmol/L (136-145); TSH (W/Ref FT4) 1.96 uIU/mL (0.36-3.74); Total Protein 7.1 g/dL (6.4-8.2)
[2024-01-15 18:21] LABS: Hemoglobin A1C 6.5 % (<5.7)
[2024-01-16 18:35] LABS: C-Reactive Protein 2.19 mg/dL (<or=0.5)
== END 2024-01-15 11:55 | disposition home or self-care (01) ==
LOC: NCHCN 11:54
PROVIDERS: PCP Family Medicine; Visit Provider Family Medicine
DX: R53.81 Other malaise (principal)
CPT/HCPCS: 80053; 83036; 84443; 85025; 86140; 87086

== ENCOUNTER 2024-02-03 02:57 | Outpatient (CLI) | payer MEDICARE, SELFPAY ==
--- NOTE | 2024-02-03 | DI.CT_ITS ---
Exam(s) CT CHEST/ABD/PEL W EXAM: CT CHEST/ABD/PEL W CLINICAL HISTORY: Abnl Wt loss, R63.4. TECHNIQUE: Imaging Protocol: Axial computed tomography images with coronal and sagittal reformatted images were created and reviewed. Computer aided detection (CAD) was utilized. CONTRAST MATERIAL: Intravenous: Omnipaque 350 Contrast volume:100 ml Oral: yes / COMPARISON: CT CT CHEST LUNG CANCER SCREEN from 12/26/2022 FINDINGS: CHEST: Tracheobronchial tree: Patent. Pulmonary parenchyma: Underlying emphysematous changes. Area consolidation and volume loss noted in t he right upper lobe. Mild bronchiectasis in this area. Previously noted spiculated nodule is no longe r visible which could be obscured by the area of consolidation/atelectasis. Additional diffuse infilt rate is noted in the right lower lobe. Mild ground-glass opacities are present in the right middle lo be. Pleura: No effusion or pneumothorax. Mediastinum: Within normal limits. Aorta: Thoracic portion non-dilated. Pulmonary arteries: No visible emboli. Heart: Normal size. No pericardial effusion. Bones: Unremarkable for age. No lytic or blastic lesions.No compression fractures. Soft tissues: Unremarkable. ABDOMEN and PELVIS: Liver: Normal density. Stable liver cysts. No suspicious mass. Gallbladder and biliary tract: No evidence of stones or wall thickening. No biliary dilatation. Pancreas: Normal density, no abnormal calcifications or inflammatory process. Spleen: Normal. Kidneys: Normal size, contour and axis. No radiodense stones. No obstructive uropathy. No suspicious masses seen. Adrenal glands: No stable right adrenal mass. Aorta: Abdominal portion non-dilated. Atherosclerotic changes. Lymph nodes: Within normal limits. Soft tissues: Unremarkable. Bladder: Unremarkable. Bowel: No obstruction or bowel wall thickening. Appendix normal. Peritoneal cavity: No ascites. No focal collection. No mesenteric inflammatory response. No free ai r. Bones: Degenerative changes in the spine. Reproductive organs: Status post hysterectomy. IMPRESSION: Area of consolidation and or atelectasis in the right upper lobe. Patchy infiltrates in the right low er lobe and middle lobe. Previously noted nodule in the right upper lobe no longer visible. This coul d be obscured by the area of atelectasis/consolidation. Malignancy not excluded. Close follow-up missy mmended. No acute abnormality in the abdomen or pelvis. RADIATION DOSE DELIVERED: 349.81mGy.cm Total DLP DATA REPOSITORY: All CT scans at this facility are submitted to the National Radiology Data Registry (NRDR) Dose Index Registry (DIR) with the [employer] ([employer]). RADIATION OPTIMIZATION: All CT scans at this facility use at least one of these dose optimization te chniques: automated exposure control; mA and/or kV adjustment per patient size (includes targeted exa ms where dose is matched to clinical indication); or iterative reconstruction.
[2024-02-03] MEDS: Barium Sulfate 2% W/V-Creamy Vanilla Smoothie 450 ML BTL PO ×2 (11:22→11:24)
[2024-02-03] MEDS: Omnipaque 350 MG/ML 100 ML BTL IJ (13:22)
[2024-02-03] MEDS: Normal Saline - Diluent 50 ML VIAL IJ (13:22)
== END 2024-02-03 03:17 ==
LOC: DI 02:57
PROVIDERS: PCP Family Medicine; Visit Provider Family Medicine
DX: J98.11 Atelectasis (principal)
CPT/HCPCS: 74177; 71260; J3490

== ENCOUNTER 2024-02-04 08:14 | Outpatient (REF) | payer MEDICARE, SELFPAY ==
--- NOTE | 2024-02-04 07:40 | SKI_PTH ---
PATIENT: Amairani Escobedo LOC: [facility] U#:[id number] AGE/SX: 73/F ROOM: RE02/04/[address]: Max Torres MD : 1950 BED: DIS: 02/04/2024 SPEC #: [id number] RECD: 02/04/24 12:40 STATUS: ASTON REQ #: [id number] JAYA: 02/04/24 07:[address]: Max Torres DEPT: Surgical Specimen RECD BY: Marlena Cardona ENTERED: 02/04/24 12:40 SP TYPE: SKI OTHR DR: rBitney Bose V Tissues: 1 - SKIN BIOPSY(SHAVE/PUNCH) Procedures: SKIN LEVEL 4 Comments: [id number]
== END 2024-02-04 08:15 | disposition home or self-care (01) ==
LOC: LBN 08:14
PROVIDERS: PCP Family Medicine; Visit Provider Otolaryngology
DX: L98.9 Disorder of the skin and subcutaneous tissue, unspecified (principal); L82.1 Other seborrheic keratosis
CPT/HCPCS: 88305

== ENCOUNTER 2024-04-29 00:33 | Outpatient (CLI) | payer MEDICARE, SELFPAY ==
--- NOTE | 2024-04-29 08:19 | DI.CT_ITS ---
Exam(s) CT CHEST WO EXAM: CT CHEST WO CLINICAL HISTORY: Primary malignant neoplasm of RUL of lung, C34.11; completed empiric SBRT TECHNIQUE: Imaging Protocol: Axial computed tomography images with coronal and sagittal reformatted images were created and reviewed. Computer aided detection (CAD) was utilized. CONTRAST MATERIAL: Noncontrast. COMPARISON: CT CT CHEST/ABD/PEL W from 02/03/2024 FINDINGS: Pulmonary parenchyma: There is right upper lobe scarring and volume loss. There is some collapse o f the inferior right upper lobe. The appearance is improved from prior. There is no evidence of dis crete mass. The previously noted infiltrates have cleared. No new masses or pulmonary nodules. Mod erate underlying emphysematous changes. Tracheobronchial tree: No bronchiectasis or mucous plugging. Mediastinum and Julianne: No dominant adenopathy or fluid collection. Pleura: No effusion. No pneumothorax. Heart: The heart is not dilated. No coronary artery calcifications are seen. Aorta: Thoracic aorta non-dilated. Mild atherosclerotic changes. Pulmonary arteries: No gross evidence of emboli. Upper abdomen: No acute findings. Stable right adrenal mass. Liver cysts. Bones: Degenerative changes in the spine. No lytic or blastic lesions. Soft tissues: Unremarkable. IMPRESSION: Right upper lobe scarring and volume loss. Significant interval improvement from prior exam. The pr eviously noted infiltrates have cleared. No new masses or pulmonary nodules. RADIATION DOSE DELIVERED: 202.64mGy.cm Total DLP DATA REPOSITORY: All CT scans at this facility are submitted to the National Radiology Data Registry (NRDR) Dose Index Registry (DIR) with the [employer] ([employer]). RADIATION OPTIMIZATION: All CT scans at this facility use at least one of these dose optimization te chniques: automated exposure control; mA and/or kV adjustment per patient size (includes targeted exa ms where dose is matched to clinical indication); or iterative reconstruction.
== END 2024-04-29 00:53 ==
LOC: DI 00:34
PROVIDERS: PCP Family Medicine; Visit Provider Physician Assistant
DX: C34.11 Malignant neoplasm of upper lobe, right bronchus or lung (principal)
CPT/HCPCS: 71250

== ENCOUNTER 2024-10-27 01:41 | Outpatient (CLI) | payer MEDICARE, SELFPAY ==
--- NOTE | 2024-10-27 | DI.CT_ITS ---
Exam(s) CT CHEST WO EXAM: CT CHEST WO CLINICAL HISTORY: RT UPPER LOBE LUNG CANCER C34.11 COMPLETED SBRT 06/27/23 FOR RUL NODULE. TECHNIQUE: Imaging protocol: Axial computed tomography images were obtained and coronal and sagittal reformatted images were created and reviewed. Lung Computer Aided Detection (CAD) was utilized. COMPARISON: CT CT CHEST LUNG CANCER SCREEN from 12/26/[address] CHEST/ABD/PEL W from 02/03/[address] CHEST WO from 04/29/2024 FINDINGS: Tracheobronchial tree: Patent where visualized. No bronchiectasis is present. Pulmonary parenchyma: Emphysematous changes are seen within the lungs. Calcified granuloma are present. There is continued improvement of the opacity in the right upper lobe. No new infiltrates are present. Mediastinum and Julianne: No dominant adenopathy or fluid collection. The esophagus is unremarkable. Thyroid gland: Unremarkable. Pleura: No effusion or pneumothorax. Heart: The heart is not dilated. Mild single-vessel coronary artery calcification is present. No pericardial effusion. Aorta: Thoracic aorta non-dilated. Atherosclerotic calcification is present. Upper abdomen: There are multiple hepatic cysts again seen. There is a stable right adrenal nodule. Lymph nodes: Within normal limits. Soft tissues: Unremarkable. Bones:Within normal limits for the patient's age. IMPRESSION: 1. Continued improvement of the right upper lobe scarring compared to the prior examination. 2. No acute pulmonary process, new masses or infiltrates. 3. Stable hepatic cysts and right adrenal nodule. RADIATION DOSE DELIVERED: 211.38mGy.cm Total DLP 211.38mGy.cm Total DLP DATA REPOSITORY: All CT scans at this facility are submitted to the National Radiology Data Registry (NRDR) Dose Index Registry (DIR) with the [employer] ([employer]). RADIATION OPTIMIZATION: All CT scans at this facility use at least one of these dose optimization techniques: automated exposure control; mA and/or kV adjustment per patient size (includes targeted exams where dose is matched to clinical indication); or iterative reconstruction.
== END 2024-10-27 02:01 ==
LOC: DI 01:41
PROVIDERS: PCP Family Medicine; Visit Provider Physician Assistant
DX: C34.11 Malignant neoplasm of upper lobe, right bronchus or lung (principal); K76.89 Other specified diseases of liver
CPT/HCPCS: 71250